=== PATIENT | male | born 1970 | race Caucasian/White ===

== ENCOUNTER → 2021-07-13 | Outpatient (CLI) | payer OTHER ==
--- NOTE | ~2021-07-13 | PF ---
[address] [address] PULMONARY FUNCTION REPORT Name: RADHA BARBOSA Room: [facility]#: [id number] Admission: 07/13/21 Attend Phys: Jose Deng Discharge: Date of : 70 Report #: [id number] THIS REPORT FOR: cc: [facility] - Clinic physician unknown [facility] - Clinic physician unknown Bishnu Flores MD ~ DATE OF VISIT: 07/13/2021 PULMONARY FUNCTION TEST The FEV1/FVC ratio is normal at 78% with an FVC normal at 90%. The FEV1 is also normal at 90%. FEF 25-75 is decreased to 36%. After the administration of a bronchodilator, there is no significant increase in the patient's FVC or the FEV1. The FEF 25-75; however, is noted to increase markedly at 220%. Only a spirometry was performed. IMPRESSION: The pre-bronchodilator spirometry shows reduction in FEF 25-75 to 36%. This increases markedly by 220% after the administration of a bronchodilator. The rest of the spirometry both before and after the administration of a bronchodilator are normal. Possible etiologies of the findings include minimal obstruction with evidence of reversibility or variation in the patient effort or normal variant. Clinical correlation is advised. If clinically indicated, then repeat spirometry with reversibility with a full pulmonary function test including lung volumes can done to assess further. By: [id number] eliud Cho
== END ==
LOC: M.PUL 11:00
PROVIDERS: ATTEND Chiropractor
DX: J44.0 Chronic obstructive pulmonary disease with (acute) lower respiratory infection (principal)